=== PATIENT | male | born 1945 | race Caucasian/White ===

== ENCOUNTER 2019-12-09 11:59 | Observation (INO) | payer MEDICARE, BC, OTHER ==
[~2019-12-09] VITALS: Ht 172.7 cm; Wt 83.9 kg
[2019-12-09] MEDS ORDERED: NS 1,000 ML IV ONE (12:15)
[2019-12-09 12:30] LABS: BASO # 0.1 10^3/uL (0.0-0.2); BASO % 0.5 % (0.0-1.0); EOS # 0.1 10^3/uL (0.0-0.5); HEMATOCRIT 43.7 % (42.0-52.0); HEMOGLOBIN 14.6 g/dl (13.5-17.5); LYMPH # 1.4 10^3/uL (1.5-5.0); LYMPH % 12.5 % (24.0-44.0); MEAN CORPUSCULAR HEMOGLOBIN 32.2 pg (27.0-33.0); MEAN CORPUSCULAR HGB CONC 33.4 g/dl (32.0-36.5); MEAN CORPUSCULAR VOLUME 96.5 fl (80.0-96.0); MONO # 0.8 10^3/uL (0.0-0.8); MONO % 7.3 % (0.0-5.0); NEUTROPHILS # 8.7 10^3/uL (1.5-8.5); NEUTROPHILS % 78.2 % (36.0-66.0); PLATELET COUNT, AUTOMATED 195 10^3/uL (150-450); RED BLOOD COUNT 4.53 10^6/uL (4.30-6.10); WHITE BLOOD COUNT 11.1 10^3/uL (4.0-10.0)
[2019-12-09] MEDS ORDERED: ASPI81CH33 PO (12:32)
[2019-12-09 12:41] LABS: INR 1.02; PROTHROMBIN TIME 13.6 SECONDS (11.8-14.0)
[2019-12-09 12:42] LABS: PARTIAL THROMBOPLASTIN TIME 32.2 SECONDS (25.0-38.4)
[2019-12-09] MEDS: METOPROLOL 5 MG/5 ML VIAL IV SCH ×3 (12:42→13:05)
--- NOTE | 2019-12-09 12:49 | REPVR ---
PROCEDURE INFORMATION: Exam: CT Cervical Spine Without Contrast Exam date and time: 12/09/2019 12:29 PM Age: 74 years old Clinical indication: Injury or trauma; Fall; Initial encounter; Blunt trauma; Additional info: Fall with head injury TECHNIQUE: Imaging protocol: Computed tomography images of the cervical spine without contrast. Radiation optimization: All CT scans at this facility use at least one of these dose optimization techniques: automated exposure control; mA and/or kV adjustment per patient size (includes targeted exams where dose is matched to clinical indication); or iterative reconstruction. COMPARISON: No relevant prior studies available. FINDINGS: Vertebrae: No acute fracture. Normal alignment. Discs/Spinal canal/Neural foramina: No significant disc disease or spondylosis. No severe spinal canal stenosis. No significant neural foraminal narrowing. Soft tissues: Unremarkable. Lungs: Lung apices are normal. IMPRESSION: No acute findings. Electronically signed by: Karime Rueda On 12/09/2019 12:49:33 PM
--- NOTE | 2019-12-09 12:50 | REPVR ---
PROCEDURE INFORMATION: Exam: XR Chest, 1 View Exam date and time: 12/09/2019 12:13 PM Age: 74 years old Clinical indication: Other: A fib; Additional info: Chest pain TECHNIQUE: Imaging protocol: XR of the chest Views: 1 view. COMPARISON: No relevant prior studies available. FINDINGS: Lungs: Unremarkable. No consolidation. Pleural space: Unremarkable. No pleural effusion. No pneumothorax. Heart/Mediastinum: There is mild cardiomegaly. Bones/joints: Unremarkable. IMPRESSION: No acute abnormality. Electronically signed by: Karime Rueda On 12/09/2019 12:51:07 PM
--- NOTE | 2019-12-09 12:50 | REPVR ---
PROCEDURE INFORMATION: Exam: CT Head Without Contrast Exam date and time: 12/09/2019 12:29 PM Age: 74 years old Clinical indication: Syncope and collapse; Additional info: Syncope; Head injury TECHNIQUE: Imaging protocol: Computed tomography of the head without contrast. Radiation optimization: All CT scans at this facility use at least one of these dose optimization techniques: automated exposure control; mA and/or kV adjustment per patient size (includes targeted exams where dose is matched to clinical indication); or iterative reconstruction. COMPARISON: No relevant prior studies available. FINDINGS: Brain: There is no acute intracranial hemorrhage or mass effect. Mild diffuse volume loss is within the range of normal for patient age. There are small vessel ischemic changes within the periventricular and subcortical white matter, but the normal stewart/white matter delineation is maintained. Ventricles: Normal. No ventriculomegaly. Bones/joints: Unremarkable. No acute fracture. Sinuses: Visualized sinuses are unremarkable. No fluid levels. Mastoid air cells: Visualized mastoid air cells are well aerated. Soft tissues: Unremarkable. IMPRESSION: No acute hemorrhage or edema. Electronically signed by: Karime Rueda On 12/09/2019 12:50:37 PM
[2019-12-09 13:07] LABS: ALBUMIN 3.6 GM/DL (3.2-5.2); ALT/SGPT 36 U/L (12-78); BILIRUBIN,DIRECT 0.2 MG/DL (0.0-0.2); BILIRUBIN,TOTAL 0.6 MG/DL (0.2-1.0); BLOOD UREA NITROGEN 17 MG/DL (7-18); CALCIUM LEVEL 8.9 MG/DL (8.8-10.2); CARBON DIOXIDE LEVEL 25 MEQ/L (21-32); CHLORIDE LEVEL 110 MEQ/L (98-107); CK-MB VALUE MASS 4.1 NG/ML (<3.6); CPK CREATINE PHOSPHOKINASE 136 U/L (39-308); CREATININE FOR GFR 1.14 MG/DL (0.70-1.30); GLOMERULAR FILTRATION RATE > 60.0 (>42); GLUCOSE, FASTING 132 MG/DL (70-100); LIPASE 74 U/L (73-393); MB/CK RELATIVE INDEX 3.01 (< OR =4); NT-PRO BNP 4745 PG/ML (<450); POTASSIUM SERUM 4.2 MEQ/L (3.5-5.1); SODIUM LEVEL 138 MEQ/L (136-145); TROPONIN I 0.05 NG/ML (< 0.10)
[2019-12-09] MEDS ORDERED: METOPROLOL TART 25 MG TABLET PO ONE (13:15)
[2019-12-09] MEDS ORDERED: FUROSEMIDE 20MG/2ML VIAL (J1940) IV ONE (14:00)
[2019-12-09] MEDS ORDERED: APIXABAN 5 MG TAB (ELIQUIS) PO ONE (14:15)
[2019-12-09] MEDS ORDERED: ICAPTAB PO (15:05)
[2019-12-09] MEDS ORDERED: ASPI81TA26 PO (15:05)
[2019-12-09] MEDS ORDERED: THERTAB20 PO (15:05)
[2019-12-09] MEDS ORDERED: HM P99TA PO (15:05)
[2019-12-09] MEDS ORDERED: IPRATROPIUM 0.5MG/ALBUTEROL 2.5MG INH SOL UD 3ML (DUONEB) NEB PRN (16:30)
--- NOTE | 2019-12-09 16:59 | HPEPDOC ---
[facility] [place] Medical History & Physical Date of Admission Dec 09, 2019 Date of Service: Dec 09, 2019 History and Physical CHIEF COMPLAINT: Syncope HISTORY OF PRESENT ILLNESS: Patient is a 74-year-old male with past medical history of every day smoker presented with a chief complaint of syncope. Patient reports losing consciousness when mowing his yard-weed whacking. He denies going to the hospital or seeking medical care regularly as he reports some anxiety with healthcare. He denies having any diagnosed health conditions, no cardiac history. Current symptoms started when he was exerting himself While gardening. Reports suddenly getting short of breath and losing consciousness. His friend subsequently got him to the emergency department for further assessment. Who currently reports resolution of initial symptoms-some shortness of breath but not as severe. Reports improvement of symptoms with medication in the ED. no chest pain or pressure. no diaphoresis. no swelling Ed course: He was found to be in a fib with RVR, presentation. Patient was given three doses of IV Lopressor with great control. Patients case was reviewed with cardiology recommended starting anticoagulation. He also received lasix IV 20 mg Past medical history: remote history of hypertension but never got treated. Past surgical history: no recent surgeries Social history: current every day smoker, one pack per day. No alcohol or recreational drug use. Family history: CVA maternal ALLERGIES: Please see below. REVIEW OF SYSTEMS: CONSTITUTIONAL: no fevers/chills/weight oss HEENT: no headaches, no vision changes CARDIOVASCULAR: no chest pain, RESPIRATORY: dyspnea GASTROINTESTINAL: no n/v GENITOURINARY: no dysuria SKIN: no rashes, no trauma MUSCULOSKELETAL: grossly normal. no edema NEUROLOGICAL: no weakness, no sensory changes PSYCHIATRIC: anxiety ENDOCRINE: no increased urination or thirst HEMATOLOGIC/LYMPHATIC: bruising seen on hands HOME MEDICATIONS: Please see below. PHYSICAL EXAMINATION: VITAL SIGNS: see below GENERAL APPEARANCE: mild distress HEENT: normocephalic CARDIOVASCULAR: tachycardic on auscultation. no overt murmurs LUNGS: inspiratory wheezing on right apex - improved with cough ABDOMEN: soft, nontender MUSCULOSKELETAL: grossly normal; no edema EXTREMITIES: no pitting edema. bruising noted on arms NEUROLOGICAL: no focal deficits PSYCHIATRIC: slightly anxious LABORATORY DATA: See below. IMAGING: CXR reviewed MICROBIOLOGY: Please see below. ASSESSMENT: 74 y.o M presented with syncope and associated dyspnea secondary to new onset atrial fibrillation with rapid ventricular rate. . PLAN: 1. New onset A.fib - s/p IV metoprolol 5mg 3 doses. will start lopressor 25mg BID -continue eliquis 5mg BID. bleeding risk and stroke prevention benefit discussed - patient agreeable for anticoagulation 2. Syncope -like cardiac. will f/u echo 3. Dyspnea -like 2/2 increased ventricular rate. no clinical signs of volume overload - reviwed CXR as well -will follow up on echo for any LV dysfunction. continue lasix 20mg IV for now 4. Current smoker -30+pack year smoking history. willorder duonebs PRN during hospital stay. will need COPD evaluation outpatient reviwed code status with the patient: full code Vital Signs Vital Signs Date Time Temp Pulse Resp B/P (MAP) Pulse Ox O2 Delivery O2 Flow Rate FiO2 12/09/19 13:19 98 160/114 (129) 176/105 (128) 12/09/19 12:16 97.4 18 100 Nasal Cannula 4.0 Laboratory Data Labs 24H Laboratory Tests 2 12/09/19 12:14: Immature Granulocyte % (Auto) 0.5, Neutrophils (%) (Auto) 78.2H, Lymphocytes (%) (Auto) 12.5L, Monocytes (%) (Auto) 7.3H, Eosinophils (%) (Auto) 1.0, Basophils (%) (Auto) 0.5, Neutrophils # (Auto) 8.7H, Lymphocytes # (Auto) 1.4L, Monocytes # (Auto) 0.8, Eosinophils # (Auto) 0.1, Basophils # (Auto) 0.1, Nucleated Red Blood Cells % (auto) 0.0, Prothrombin Time 13.6, Prothromb Time International Ratio 1.02, Activated Partial Thromboplast Time 32.2, Anion Gap 3L, Glomerular Filtration Rate > 60.0, Calcium Level 8.9, Magnesium Level 2.0, Total Bilirubin 0.6, Direct Bilirubin 0.2, Aspartate Amino Transf (AST/SGOT) 33, Alanine Aminotransferase (ALT/SGPT) 36, Alkaline Phosphatase 107, Total Creatine Kinase 136, Creatine Kinase MB 4.1H, Creatine Kinase MB Relative Index 3.01, Troponin I 0.05, DX-Tse-O-Type Natriuretic Peptide 4745H, Total Protein 7.0, Albumin 3.6, Albumin/Globulin Ratio 1.1, Lipase 74, Thyroid Stimulating Hormone (TSH) 2.310 CBC/BMP Laboratory Tests 12/09/19 12:14 Home Medications Scheduled Aspirin (Aspirin EC) 81 Mg Tablet.dr, 81 MG PO DAILY Multivit,Calc,Mins/Iron/Folic (Thera-M Tablet) 1 Each Tablet, 1 TAB PO DAILY Potassium Gluconate (Potassium) 99 Mg Tablet, 595 MG PO DAILY Vit A/Vit C/Vit E/Zinc/Copper (Icaps Areds Formula Dr Tablet) 1 Each Tablet.dr, 1 TAB PO DAILY Allergies Coded Allergies: No Known Allergies (Unverified , 12/09/19) A-FIB/CHADSVASC A-FIB History Current/History of A-Fib/PAF?: Yes Current PO Anticoag Therapy: No Age/Risk Factor Scoring CHADSVASC: CHADSVASC Response (Comments) Value Age Risk Factor Age >/= 75 years old 2 Gender Risk Factor Male 0 Hx of CHF No 0 Hx of HTN Yes 1 Hx of Stroke/TIA/or VTE No 0 Hx of Diabetes No 0 Hx of Vascular Disease No 0 Total 3 Treatment Treatment ordered: Apixaban MICHELLE EDMONDS DO Dec 09, 2019 16:59
[2019-12-09] MEDS ORDERED: APIXABAN 5 MG TAB (ELIQUIS) PO SCH (21:00)
[2019-12-09] MEDS: METOPROLOL TART 25 MG TABLET PO SCH (21:59)
[2019-12-09 23:50] VITALS: BP 158/84
[2019-12-10] LABS: CK-MB VALUE MASS 9.3 NG/ML (<3.6); MB/CK RELATIVE INDEX 5.64 (< OR =4); TROPONIN I 1.6 NG/ML (< 0.10)
[2019-12-10] MEDS ORDERED: ASPIRIN 325 MG TAB PO ONE (01:45)
[2019-12-10] MEDS ORDERED: CLOPIDOGREL 300 MG TAB (PLAVIX) PO STA (01:45)
--- NOTE | 2019-12-10 01:54 | IPNPDOC ---
Date Seen The patient was seen on 12/10/19. Progress Note Notified by nurse that patient had a critical troponin value of 1.6, an increase from .05 from about noon. Repeat EKG shows nonspecific ST changes, appear to be borderline depressed on lateral anterior leads. Discussed with Dr. Wood, cardiology tonsorial artist, who recommended transfer as the elevation is too high to likely be caused from tachycadia induced from Afib w/ RVR the yesterday morning in someone with normal kidney function. [facility] and [facility] was called and both are full. Discussed with patient at bedside before further calls were made, he stated that he does not want to be transfer out and wants to talk to his first. He is adamant that she not be called at this time. He states that he is 74 and would not want anything too aggressive to be done anyway. He is full code and does not mind continuing with that but may change to DNR later if things changes. He is aware that without appropriate intervention, he may as a result. He state that he is aware and would be willing to take medications if we want him to but would rather do more conservative measures or let it be. He states that if he were to go, he will only go to [facility]. He want to discuss with his at his own time and persist that we do not call his now against his wishes. He is loaded with ASA, Plavix and to start heparin drip this morning as he has had his eliquis dose last night. Decision to transfer to leave him as is to be determine later this morning after talking to his . He is under the impression that he is going home this morning when he was admitted and is very tempting to leave the hospital today but worry about signing out AMA and make the staff upset. TUSHAR LOPEZ MD Dec 10, 2019 01:54
[2019-12-10] MEDS ORDERED: HEPARIN DRIP 25,000 UNITS in IV 1 EA IV SCH ×2 (02:20→06:00)
[2019-12-10 04:00] VITALS: BP 175/86
[2019-12-10] MEDS ORDERED: HEPARIN SOD (PORCINE) 5000UNITS/ML 1ML VIAL/SYRINGE IV PRN (06:00)
[2019-12-10 06:18] LABS: HEMATOCRIT 40.3 % (42.0-52.0); HEMOGLOBIN 13.5 g/dl (13.5-17.5); MEAN CORPUSCULAR HEMOGLOBIN 32.1 pg (27.0-33.0); MEAN CORPUSCULAR HGB CONC 33.5 g/dl (32.0-36.5); MEAN CORPUSCULAR VOLUME 95.7 fl (80.0-96.0); PLATELET COUNT, AUTOMATED 178 10^3/uL (150-450); RED BLOOD COUNT 4.21 10^6/uL (4.30-6.10); WHITE BLOOD COUNT 10.2 10^3/uL (4.0-10.0)
[2019-12-10 06:43] LABS: ALBUMIN 3.2 GM/DL (3.2-5.2); ALT/SGPT 28 U/L (12-78); BILIRUBIN,TOTAL 0.8 MG/DL (0.2-1.0); BLOOD UREA NITROGEN 16 MG/DL (7-18); CALCIUM LEVEL 8.5 MG/DL (8.8-10.2); CARBON DIOXIDE LEVEL 27 MEQ/L (21-32); CHLORIDE LEVEL 110 MEQ/L (98-107); CREATININE FOR GFR 0.88 MG/DL (0.70-1.30); GLOMERULAR FILTRATION RATE > 60.0 (>42); GLUCOSE, FASTING 107 MG/DL (70-100); POTASSIUM SERUM 3.9 MEQ/L (3.5-5.1); SODIUM LEVEL 141 MEQ/L (136-145); TOTAL PROTEIN 6.3 GM/DL (6.4-8.2)
[2019-12-10 08:00] VITALS: BP 148/90
[2019-12-10 08:12] VITALS: BP 148/90
[2019-12-10] MEDS: METOPROLOL TART 25 MG TABLET PO SCH (08:12)
[2019-12-10] MEDS ORDERED: FUROSEMIDE 20MG/2ML VIAL (J1940) IV SCH (09:00)
[2019-12-10 09:53] LABS: CK-MB VALUE MASS 7.2 NG/ML (<3.6); MB/CK RELATIVE INDEX 3.85 (< OR =4); TROPONIN I 1.13 NG/ML (< 0.10)
[2019-12-10] MEDS ORDERED: TOPR50TA PO (10:56)
[2019-12-10] MEDS ORDERED: ELIQ5TAB PO (10:58)
[2019-12-10 12:00] VITALS: BP 119/64
--- NOTE | 2020-01-03 08:13 | ECGEPIP ---
[facility] - ED Test Date: 2019-12-09 Pat Name: DONALD MIRANDA Department: Room: - Gender: Male Corporate Legal Assistant: FARHANA : 1945 Requested By: THIERRY RYAN Order Number: [id number] Reading MD: Yesi Martinez Measurements Intervals [place] Rate: 80 P: [place]: 0 QRS: -6 QRSD: 117 T: -31 QT: 380 QTc: 439 Interpretive Statements ATRIAL FIBRILLATION WITH ABERRANT CONDUCTION OR VENTRICULAR PREMATURE COMPLEXES MODERATE INTRAVENTRICULAR CONDUCTION DELAY NONSPECIFIC ST & T-WAVE ABNORMALITY ABNORMAL ECG SEE SCANNED DOWNTIME REPORT
--- NOTE | 2020-01-03 08:14 | ECGEPIP ---
[facility] - ED Test Date: 2019-12-09 Pat Name: DONALD MIRANDA Department: Room: - Gender: Male Obstetrician: FARHANA : 1945 Requested By: THIERRY RYAN Order Number: [id number] Reading MD: Yesi Martinez Measurements Intervals [place] Rate: 128 P: CT: 0 QRS: 2 QRSD: 113 T: 196 QT: 301 QTc: 440 Interpretive Statements ATRIAL FIBRILLATION WITH RAPID VENTRICULAR RESPONSE WITH ABERRANT CONDUCTION OR VENTRICULAR PREMATURE COMPLEXES POSSIBLE LEFT VENTRICULAR HYPERTROPHY MARKED ST DEPRESSION, CONSIDER SUBENDOCARDIAL INJURY ABMORMAL ECG SEE SCANNED DOWNTIME REPORT
--- NOTE | 2020-01-12 14:55 | ECGEPIP ---
[facility] Test Date: 2019-12-10 Pat Name: DONALD MIRANDA Department: Room: [place] [address] Gender: Male Reel Cutter: GALO : 1945 Requested By: TUSHAR Uriarte Order Number: [id number] Reading MD: Silviano Wood Measurements Intervals [place] Rate: 65 P: FL: 0 QRS: -41 QRSD: 136 T: 13 QT: 448 QTc: 467 Interpretive Statements A FIB. CONTROLLED VR CARL PHENOMENON [facility] SEE SCANNED DOWNTIME REPORT.
== END 2019-12-10 14:10 | disposition home or self-care (01) ==
LOC: M ED 11:59 → EDBD 11:59 → M ED INP 12:00 → ENRESERV 23:27 → M PCU 23:45
PROVIDERS: ADMIT Internal Medicine; ATTEND Internal Medicine
DX: I48.91 Unspecified atrial fibrillation (principal); R74.8 Abnormal levels of other serum enzymes; R55 Syncope and collapse; R06.00 Dyspnea, unspecified; F17.210 Nicotine dependence, cigarettes, uncomplicated; Z79.899 Other long term (current) drug therapy; Z79.82 Long term (current) use of aspirin
CPT/HCPCS: 36415; 70450; 71045; 72125; 80048; 80053; 80076; 82550; 82553; 83690; 83735; 83880; 84443; 84484; 85025; 85027; 85610; 85730; 93005; 93041; 94760; 96374; 96375; 96376; 99285; G0378; J1644; J1940

== ENCOUNTER → 2020-04-23 | Outpatient (REF) | payer MEDICARE, OTHER ==
[~2020-04-23] MED LIST: ASPI81CH33 PO; ASPI81TA26 PO; ELIQ5TAB PO; HM P99TA PO; ICAPTAB PO; THERTAB20 PO; TOPR50TA PO
[2020-04-23 17:06] LABS: HEMATOCRIT 47.4 % (42.0-52.0); HEMOGLOBIN 15.3 g/dl (13.5-17.5); MEAN CORPUSCULAR HEMOGLOBIN 31.8 pg (27.0-33.0); MEAN CORPUSCULAR HGB CONC 32.3 g/dl (32.0-36.5); MEAN CORPUSCULAR VOLUME 98.5 fl (80.0-96.0); PLATELET COUNT, AUTOMATED 366 10^3/uL (150-450); RED BLOOD COUNT 4.81 10^6/uL (4.30-6.10); WHITE BLOOD COUNT 15.3 10^3/uL (4.0-10.0)
[2020-04-23 17:42] LABS: ALBUMIN 2.3 GM/DL (3.2-5.2); ALT/SGPT 63 U/L (12-78); BILIRUBIN,TOTAL 0.7 MG/DL (0.2-1.0); BLOOD UREA NITROGEN 23 MG/DL (7-18); CALCIUM LEVEL 8.8 MG/DL (8.8-10.2); CARBON DIOXIDE LEVEL 27 MEQ/L (21-32); CHLORIDE LEVEL 108 MEQ/L (98-107); CHOLESTEROL LEVEL 148 MG/DL (<200); CHOLESTEROL RISK RATIO 6.166 (<5); CREATININE FOR GFR 1.07 MG/DL (0.70-1.30); FREE T4 1.54 NG/DL (0.76-1.46); GLOMERULAR FILTRATION RATE > 60.0 (>42); GLUCOSE, FASTING 112 MG/DL (70-100); HDL CHOLESTEROL 24 MG/DL (>40); LDL CHOLESTEROL 88 MG/DL (<100); NON-HDL-C 124 MG/DL; POTASSIUM SERUM 5.2 MEQ/L (3.5-5.1); SODIUM LEVEL 140 MEQ/L (136-145); TRIGLYCERIDES LEVEL 179 MG/DL (<150)
[2020-04-23 17:45] LABS: TOTAL 25(OH) VITAMIN D 27.2 NG/ML (30.0-100.0)
== END ==
LOC: M LAB REF 15:36
PROVIDERS: ATTEND Physician Assistant
DX: E55.9 Vitamin D deficiency, unspecified (principal); I10 Essential (primary) hypertension; Z79.899 Other long term (current) drug therapy

== ENCOUNTER → 2020-08-07 | Outpatient (REF) | payer MEDICARE, OTHER ==
[~2020-08-07] MED LIST changes: -THERTAB20 PO; +THERTAB21 PO
[2020-08-07 18:01] LABS: BASO # 0.1 10^3/uL (0.0-0.2); BASO % 0.7 % (0.0-1.0); EOS # 0.3 10^3/uL (0.0-0.5); EOS % 2.9 % (0.0-3.0); HEMATOCRIT 47.2 % (42.0-52.0); HEMOGLOBIN 15.4 g/dl (13.5-17.5); LYMPH # 2.1 10^3/uL (1.5-5.0); LYMPH % 21.6 % (24.0-44.0); MEAN CORPUSCULAR HEMOGLOBIN 31.2 pg (27.0-33.0); MEAN CORPUSCULAR HGB CONC 32.6 g/dl (32.0-36.5); MEAN CORPUSCULAR VOLUME 95.7 fl (80.0-96.0); MONO # 0.7 10^3/uL (0.0-0.8); MONO % 7.3 % (2.0-8.0); NEUTROPHILS # 6.4 10^3/uL (1.5-8.5); NEUTROPHILS % 66.1 % (36.0-66.0); PLATELET COUNT, AUTOMATED 193 10^3/uL (150-450); RED BLOOD COUNT 4.93 10^6/uL (4.30-6.10); WHITE BLOOD COUNT 9.7 10^3/uL (4.0-10.0)
[2020-08-07 21:48] LABS: HEMOGLOBIN A1c 5.3 %
== END ==
LOC: M LAB REF 16:59
PROVIDERS: ATTEND Pediatrics
DX: R73.01 Impaired fasting glucose (principal)

== ENCOUNTER → 2021-03-27 | Outpatient (CLI) | payer MEDICARE, BC, OTHER ==
[~2021-03-27] MED LIST changes: -HM P99TA PO; +POTA99TA14 PO
--- NOTE | 2021-03-27 16:15 | REP ---
INDICATION: TOBACCO DEPENDENCE, LUNG CANCER SCREENING. COMPARISON: Radiograph 12/09/2019. TECHNIQUE: Low dose screening CT chest performed without the use of intravenous contrast. FINDINGS: Lungs: There are emphysematous and fibrotic changes bilaterally. There are small calcified granulomas bilaterally. There is patchy parenchymal opacity in the left lower lobe. This may represent fibro atelectasis or infiltrate. Heart: Not enlarged. Thoracic aorta: No aneurysm. Visualized osseous structures: There are degenerative changes of the spine. IMPRESSION: No suspicious nodules. There are chronic findings as discussed above. There is patchy parenchymal opacity in the left lower lobe which may represent infiltrate or fibro atelectasis. Recommend 3 month follow-up CT of the chest. <Electronically signed by Teo Murray > 03/27/21 [id number]
== END ==
LOC: M RAD 13:25
PROVIDERS: ATTEND Physician Assistant
DX: Z12.2 Encounter for screening for malignant neoplasm of respiratory organs (principal); F17.211 Nicotine dependence, cigarettes, in remission; J43.9 Emphysema, unspecified; J84.10 Pulmonary fibrosis, unspecified; R91.8 Other nonspecific abnormal finding of lung field

== ENCOUNTER → 2021-06-14 | Outpatient (CLI) | payer MEDICARE, BC, OTHER | LOC: M RAD 10:49 | PROVIDERS: ATTEND Physician Assistant | DX: I51.7 Cardiomegaly (principal); R93.89 Abnormal findings on diagnostic imaging of other specified body structures ==

== ENCOUNTER 2021-12-06 14:45 | Observation (INO) | payer MEDICARE, BC, OTHER ==
[2021-12-06] VITALS (7 sets, daily range): BP systolic 132–153; BP diastolic 60–71
[~2021-12-06] VITALS: Ht 172.7 cm; Wt 85.3 kg
[2021-12-06] MEDS ORDERED: ceFAZolin SOD 2 GM in IV 1 EA IV ONE (15:40)
[2021-12-06] MEDS ORDERED: LIDOCAINE 1% SDV 30ML VIAL As Ordered ONE (16:22)
[2021-12-06] MEDS ORDERED: VANCOMYCIN 1000MG/20ML VIAL As Ordered ONE (16:23)
[2021-12-06] MEDS ORDERED: ISOVUE-300 61% 50ML VIAL As Ordered ONE (16:23)
[2021-12-06] MEDS ORDERED: MUPIROCIN 2% OINT 22 GM TUBE As Ordered ONE (16:23)
[2021-12-06] MEDS ORDERED: LIDOCAINE 2% 100MG/5ML SDV (FOR ANES.) As Ordered ONE (16:30)
[2021-12-06] MEDS ORDERED: propofoL 200 MG/20 ML VIAL As Ordered ONE (16:30)
[2021-12-06] MEDS ORDERED: fentaNYL 100 MCG/2 ML INJECTION As Ordered ONE ×2 (16:31→17:57)
[2021-12-06] MEDS ORDERED: MIDAZOLAM INJ 2MG/2ML VIAL (J2250 PER 1MG) As Ordered ONE ×2 (16:31→17:44)
[2021-12-06] MEDS ORDERED: ONDANSETRON 4MG 2ML VIAL As Ordered ONE (17:21)
[2021-12-06] MEDS ORDERED: ACETAMINOPHEN 1000MG 100ML IV BTL (OFIRMEV) (J0131 PER 10MG) As Ordered ONE (17:21)
[2021-12-06] MEDS ORDERED: KETAMINE HCL 200 MG/20 ML VIAL As Ordered ONE (17:47)
[2021-12-06] MEDS ORDERED: METOPROLOL 5 MG/5 ML VIAL As Ordered ONE (18:00)
[2021-12-06] MEDS ORDERED: oxyCODONE 5MG TAB PO PRN (18:10)
[2021-12-06] MEDS ORDERED: ONDANSETRON 4MG 2ML VIAL IV PRN (18:10)
[2021-12-06] MEDS ORDERED: HYDROMORPHONE HCL 0.5 MG/ 0.5 ML SYRINGE (J1170 PER 1) IV PRN (18:10)
[2021-12-06] MEDS ORDERED: fentaNYL 100 MCG/2 ML INJECTION IV PRN (18:10)
[2021-12-06] MEDS ORDERED: LR 1,000 ML IV SCH (18:10)
[2021-12-06] MEDS ORDERED: FLUTICASONE PROP 0.05% NASAL SPRAY 16 GM (FLONASE) NARES PRN (19:30)
[2021-12-06] MEDS ORDERED: ALBUTEROL 90 MCG/ACT 8GM HFA INHALER INH PRN ×2 (19:35→23:50)
[2021-12-06] MEDS ORDERED: ACETAMINOPHEN TAB 650MG DOSE (2X325MG) PO PRN ×2 (19:35→23:50)
[2021-12-06] MEDS: ADVAIR HFA 45/21MCG INHALER INH SCH (21:18)
[2021-12-06] MEDS: NS 1,000 ML IV SCH (21:35)
[2021-12-07] MEDS: ENTRESTO 97-103MG TABLET (SACUBITRIL/VALSARTAN) PO SCH ×2 (01:29→10:13)
[2021-12-07 03:59] VITALS: BP 145/68
[2021-12-07] MEDS: NS 1,000 ML IV SCH (06:58)
[2021-12-07] MEDS: ADVAIR HFA 45/21MCG INHALER INH SCH (07:45)
[2021-12-07 08:00] VITALS: BP 158/66
[2021-12-07] MEDS ORDERED: ALBU8.5H INH (08:45)
[2021-12-07] MEDS ORDERED: ENTR1TAB4 PO (08:45)
[2021-12-07] MEDS ORDERED: ADV100INH INH (08:45)
[2021-12-07] MEDS ORDERED: AMLO2.5T3 PO (08:45)
[2021-12-07] MEDS ORDERED: ELIQ5TAB PO (08:48)
[2021-12-07 08:49] VITALS: BP 167/71
[2021-12-07] MEDS ORDERED: HOME MED LIST COMPLETE! XX SCH (08:50)
[2021-12-07] MEDS ORDERED: METOPROLOL SUCC (TopROL XL) 50MG **XL** TAB PO SCH ×2 (09:00)
[2021-12-07] MEDS ORDERED: FLUoxetine 20MG CAP PO SCH (09:00)
[2021-12-07] MEDS ORDERED: VITAMIN D 1,000 INTERNATIONAL UNITS TABLET PO SCH ×2 (09:00)
[2021-12-07] MEDS ORDERED: CETIRIZINE (ZyrTEC) 10 MG TAB PO SCH (09:00)
[2021-12-07] MEDS ORDERED: FUROSEMIDE 40 MG TAB PO SCH (09:00)
[2021-12-07] MEDS ORDERED: FLUTICASONE PROP 0.05% NASAL SPRAY 16 GM (FLONASE) NARES SCH (09:00)
[2021-12-07 12:00] VITALS: BP 157/70
[2021-12-07] MEDS ORDERED: ACET1TAB55 PO (12:48)
[2021-12-07] MEDS ORDERED: METO1TAB7 PO (12:48)
[2021-12-07] MEDS ORDERED: APIXABAN 5 MG TAB (ELIQUIS) PO SCH (21:00)
== END 2021-12-07 13:26 | disposition home or self-care (01) ==
LOC: M SDC 14:45 → M PCU 14:46 → INTOOBSV 14:46 → UNDOADMIN 19:54 → M PCU 19:54 → UNDODISIN 12-07 13:26
PROVIDERS: ADMIT Internal Medicine Cardiovascular Disease; ATTEND Internal Medicine Cardiovascular Disease
DX: I44.2 Atrioventricular block, complete (principal); I45.19 Other right bundle-branch block; I48.21 Permanent atrial fibrillation; I50.9 Heart failure, unspecified; I11.0 Hypertensive heart disease with heart failure; F41.9 Anxiety disorder, unspecified; J30.2 Other seasonal allergic rhinitis; M35.00 Sjogren syndrome, unspecified; H91.90 Unspecified hearing loss, unspecified ear; Z79.01 Long term (current) use of anticoagulants; Z79.899 Other long term (current) drug therapy
CPT/HCPCS: 33207; 71045; 71046; 76000; 87635; 93005; 94640; C1769; C1786; C1898; G0378; J0131; J0690; J2250; J2405; J3010; J3370; Q9967

== ENCOUNTER 2024-04-27 16:15 | Emergency (ER) | payer MEDICARE, BC ==
[~2024-04-27] VITALS: Ht 170.2 cm; Wt 86.4 kg
[~2024-04-27 16:15] MED LIST changes: +ACET1TAB55 PO; +ADVA1AER8 INH; +ALBU8.5H INH; +AMLO2.5T3 PO; +ENTR1TAB4 PO; +METO1TAB7 PO
[2024-04-27] MEDS: NORCO, ANEXSIA 5/325MG TABLET (HYDROcodone/ACETAMINOPHEN) PO ONE (21:47)
[2024-04-27 21:48] LABS: BASO # 0.1 10^3/uL (0.0-0.2); BASO % 0.5 % (0.0-1.0); EOS # 0.1 10^3/uL (0.0-0.5); EOS % 1.4 % (0.0-3.0); HEMATOCRIT 40.2 % (42.0-52.0); HEMOGLOBIN 13.1 g/dl (13.5-17.5); LYMPH # 1.5 10^3/uL (1.5-5.0); LYMPH % 15.5 % (24.0-44.0); MEAN CORPUSCULAR HEMOGLOBIN 32.2 pg (27.0-33.0); MEAN CORPUSCULAR HGB CONC 32.6 g/dl (32.0-36.5); MEAN CORPUSCULAR VOLUME 98.8 fl (80.0-96.0); MONO # 0.9 10^3/uL (0.0-0.8); NEUTROPHILS % 73.2 % (36.0-66.0); PLATELET COUNT, AUTOMATED 224 10^3/uL (150-450); RED BLOOD COUNT 4.07 10^6/uL (4.30-6.10); WHITE BLOOD COUNT 9.5 10^3/uL (4.0-10.0)
[2024-04-27 21:53] LABS: ERYTHROCYTE SEDIMENTATION RATE 30 mm/hr (0-20)
[2024-04-27 22:27] LABS: ALBUMIN 3.2 G/DL (3.2-5.2); ALKALINE PHOSPHATASE 130 U/L (40-129); ALT/SGPT 21 U/L (7.0-40); AST/SGOT 26 U/L (<34); BILIRUBIN,DIRECT 0.3 MG/DL (<0.4); BILIRUBIN,TOTAL 0.9 MG/DL (0.3-1.2); BLOOD UREA NITROGEN 18 MG/DL (9-23); C REACTIVE PROTEIN QUANTITATIV < 0.50 MG/DL (<1.0); CARBON DIOXIDE LEVEL 26 MMOL/L (20-31); CHLORIDE LEVEL 110 MMOL/L (98-107); CREATININE FOR GFR 0.94 MG/DL (0.70-1.30); GLOMERULAR FILTRATION RATE > 60.0 (>42); GLUCOSE, FASTING 106 MG/DL (74-106); POTASSIUM SERUM 4.8 MMOL/L (3.5-5.1); SODIUM LEVEL 142 MMOL/L (136-145); TOTAL PROTEIN 6.4 G/DL (5.7-8.2)
[2024-04-27] MEDS ORDERED: PERC5TAB12 PO (22:50)
[2024-04-27] MEDS ORDERED: DOXY100C3 PO (22:50)
[2024-04-27] MEDS: DOXYCYCLINE HYCLATE 100MG TABLET PO ONE (22:55)
[2024-04-27] MEDS: OXYCODONE/APAP 5MG/325MG(HOME DOSE PACK) PO ONE (22:56)
[2024-04-27 23:01] VITALS: BP 135/66; TEMP 98; O2SAT 93
== END 2024-04-27 23:03 | disposition home or self-care (01) ==
LOC: M ED 16:15
DX: L03.031 Cellulitis of right toe (principal); I48.91 Unspecified atrial fibrillation; I11.0 Hypertensive heart disease with heart failure; E78.5 Hyperlipidemia, unspecified; J44.9 Chronic obstructive pulmonary disease, unspecified; K21.9 Gastro-esophageal reflux disease without esophagitis; F41.9 Anxiety disorder, unspecified; Z87.891 Personal history of nicotine dependence; Z79.01 Long term (current) use of anticoagulants; Z79.899 Other long term (current) drug therapy

== ENCOUNTER → 2024-05-18 | Outpatient (CLI) | payer MEDICARE, BC ==
[~2024-05-18] MED LIST changes: +DOXY100C3 PO; +ISOVUE-370 76% 100ML VIAL As Ordered ONE; +PERC5TAB12 PO
== END ==
LOC: M RAD 15:06
PROVIDERS: ATTEND Internal Medicine Cardiovascular Disease
DX: I70.203 Unspecified atherosclerosis of native arteries of extremities, bilateral legs (principal); I70.0 Atherosclerosis of aorta; I74.09 Other arterial embolism and thrombosis of abdominal aorta; N28.1 Cyst of kidney, acquired; K40.20 Bilateral inguinal hernia, without obstruction or gangrene, not specified as recurrent; K57.90 Diverticulosis of intestine, part unspecified, without perforation or abscess without bleeding
CPT/HCPCS: 75635; Q9967